=== PATIENT | female | born 1950 | race Caucasian/White ===

== ENCOUNTER 2017-05-27 12:51 | Emergency (ER) | payer OTHER ==
[2017-05-27 13:01] VITALS: BP 143/79
--- NOTE | 2017-05-27 13:07 | EDM.PDOC ---
ED HPI GENERAL MEDICAL PROBLEM - General Chief Complaint: Respiratory Problem Stated Complaint: SOB Time Seen by Provider: 05/27/17 13:07 Source of Information: Reports: Patient History Limitations: Reports: No Limitations - History of Present Illness INITIAL COMMENTS - FREE TEXT/NARRATIVE: 66-year-old female presents for evaluation and treatment of shortness of breath. Patient reports for the last weeks to maybe a few months she feels like she cannot take a full breath in. She states that it is worse at night. She reports that today she felt lightheaded and experienced the worst shortness of breath thus far therefore she decided to present to the ER. She denies any syncope, chest pain, abdominal pain, fevers, nausea, vomiting, throat swelling, edema or lymphadenopathy. She states that she has gained some weight recently but reports that her diet has not been very healthy and this is likely the reason. When asked if she's been having a pain in her legs she states that she has spinal stenosis and it is difficult for her to tell if this is from the spinal stenosis she's been experiencing any leg pain. Patient does acknowledge that this could be from anxiety. Reports that she has a lot going on and they' re currently moving into a new home. Patient is healthy with no known medical conditions. She takes some vitamins. Primary care provider is Tracy Aguirre. Reports that she used to smoke up to 2 packs a day x 15 years but she quit in the 1980s. Back Pain Score (Numeric/FACES): 4 - Related Data Allergies Allergy/AdvReac Type Severity Reaction Status Date / Time No Known Allergies Allergy Verified 05/27/17 13:01 ED ROS GENERAL - Review of Systems Review Of Systems: See Below Constitutional: Denies: Fever, Chills, Malaise Respiratory: Reports: Shortness of Breath (reports she feels she cannot take a full breath in). Denies: Cough Cardiovascular: Denies: Chest Pain, Syncope GI/Abdominal: Denies: Abdominal Pain, Nausea, Vomiting Musculoskeletal: Reports: Leg Pain (questionsif this is from spinal stenosis) ED EXAM, GENERAL - Physical Exam Exam: See Below Exam Limited By: No Limitations General Appearance: Alert, WD/WN, No Apparent Distress Ears: Normal External Exam, Normal Canal, Hearing Grossly Normal, Normal TMs Nose: Normal Inspection Throat/Mouth: Normal Inspection, Normal Lips, Normal Voice, No Airway Compromise Neck: Normal Inspection Respiratory/Chest: No Respiratory Distress, Lungs Clear, Normal Breath Sounds, Chest Non-Tender Cardiovascular: Normal Peripheral Pulses, Regular Rate, Rhythm, No Murmur Peripheral Pulses: 2+: Radial (L), Radial (R), Posterior Tibial (L), Posterior Tibial (R) GI/Abdominal: Soft, Non-Tender Neurological: Alert, Normal Cognition Psychiatric: Normal Affect, Normal Mood Skin Exam: Warm, Dry, Ecchymosis EKG INTERPRETATION EKG Date: 05/27/17 Time: 13:08 Rhythm: NSR Rate (Beats/Min): 54 [place]: Normal P-Wave: Present QRS: Normal ST-T: Normal QT: Normal EKG Interpretation Comments: NSR at 54 bpm. No acute changes. Reviewed by myself and Dr. Antonio. Course - Vital Signs Last Recorded V/S: Last Vital Signs Temp 36.7 C 05/27/17 12:58 Pulse 64 05/27/17 12:58 Resp 18 05/27/17 12:58 BP 143/79 H 05/27/17 12:58 Pulse Ox 100 05/27/17 13:11 - Orders/Labs/Meds Orders: Active Orders 24 hr Category Date Time Status Cardiac Monitoring [RC] . DIRECTED Care 05/27/17 13:16 Active EKG 12 Lead [EKG Documentation Completion] [RC] STAT Care 05/27/17 13:04 Active Peripheral IV Care [RC] . DIRECTED Care 05/27/17 13:18 Active Chest 2V [CR] Stat Exams 05/27/17 13:16 Taken Peripheral IV Insertion Adult [OM.PC] Routine Oth 05/27/17 13:18 Ordered Labs: Laboratory Tests 05/27/17 05/27/17 05/27/17 Range/Units 13:40 13:40 14:40 WBC 6.83 (3.98-10.04) K/mm3 RBC 4.85 (3.98-5.22) M/mm3 Hgb 14.5 (11.2-15.7) gm/L Hct 43.6 (34.1-44.9) % MCV 89.9 (79.4-94.8) fl MCH 29.9 (25.6-32.2) pg MCHC 33.3 (32.2-35.5) g/dl RDW Std Deviation 43.5 (36.4-46.3) fL Plt Count 215 (182-369) K/mm3 MPV 10.7 (9.4-12.3) fl Neut % (Auto) 49.1 (34.0-71.1) % Lymph % (Auto) 39.2 (19.3-51.7) % [place] % (Auto) 8.2 (4.7-12.5) % Eos % (Auto) 2.8 (0.7-5.8) Baso % (Auto) 0.4 (0.1-1.2) % Neut # (Auto) 3.35 (1.56-6.13) K/mm3 Lymph # (Auto) 2.68 (1.18-3.74) K/mm3 [place] # (Auto) 0.56 H (0.24-0.36) K/mm3 Eos # (Auto) 0.19 (0.04-0.36) K/mm3 Baso # (Auto) 0.03 (0.01-0.08) K/mm3 D-Dimer, Quantitative < 0.19 L (0.19-0.59) mg/L Sodium 143 (136-145) mEq/L Potassium 4.2 (3.5-5.1) mEq/L Chloride 105 (98-107) mEq/L Carbon Dioxide 30 (21-32) mEq/L Anion Gap 12.2 (5-15) BUN 13 (7-18) mg/dL Creatinine 0.9 (0.55-1.02) mg/dL Est Cr Clr Drug Dosing 57.43 mL/min Estimated GFR (MDRD) > 60 (>60) mL/min BUN/Creatinine Ratio 14.4 (14-18) Glucose 86 (80-115) mg/dL Calcium 9.9 (8.5-10.1) mg/dL Total Bilirubin 0.8 (0.2-1.0) mg/dL AST 13 L (15-37) U/L ALT 22 (14-59) U/L Alkaline Phosphatase 64 (46-116) U/L CK-MB (CK-2) 1.4 (0-3.6) ng/ml Troponin I < 0.017 (0.00-0.056) ng/mL Total Protein 7.6 (6.4-8.2) g/dl Albumin 4.4 (3.4-5.0) g/dl Globulin 3.2 gm/dL Albumin/Globulin Ratio 1.4 (1-2) Meds: Medications Discontinued Medications Generic Name Dose Route Start Last Admin Trade Name Sunil PRN Reason Stop Dose Admin Sodium Chloride 10 ml 05/27/17 13:18 05/27/17 13:41 Saline Flush FLUSH 10 ml ASDIRECTED PRN Administration Keep Vein Open - Radiology Interpretation Free Text/Narrative:: 2 view chest xray shows no acute intrathoracic process. - Re-Assessments/Exams Free Text/Narrative Re-Assessment/Exam: 05/27/17 15:33 Labs returned and are generally unremarkable. I reviewed this with the patient along with her EKG and chest x-ray results. I feel this is most likely anxiety. She is reassured. I will discharge her home at this time. Instructions to follow-up with her primary care provider if her symptoms persist. She does not want to try any medications for anxiety. Discharge instructions as documented. Departure - Departure Time of Disposition: 15:34 Disposition: Home, Self-Care 01 Condition: Good Clinical Impression: Anxiety - Discharge Information Instructions: Panic Attacks, [id number] Referrals: Yolette Augirre [facility] [Primary Care Provider] - Forms: ED Department Discharge Additional Instructions: Follow-up with your primary care provider if your symptoms persist. Rest. Please return to the ER if your symptoms change or worsen. - My Orders Last 24 Hours: My Active Orders 05/27/17 13:04 EKG 12 Lead [EKG Documentation Completion] [RC] STAT 05/27/17 13:16 Cardiac Monitoring [RC] . DIRECTED Chest 2V [CR] Stat 05/27/17 13:18 Peripheral IV Care [RC] . DIRECTED Peripheral IV Insertion Adult [OM.PC] Routine - Assessment/Plan Last 24 Hours: My Active Orders 05/27/17 13:04 EKG 12 Lead [EKG Documentation Completion] [RC] STAT 05/27/17 13:16 Cardiac Monitoring [RC] . DIRECTED Chest 2V [CR] Stat 05/27/17 13:18 Peripheral IV Care [RC] . DIRECTED Peripheral IV Insertion Adult [OM.PC] Routine
[2017-05-27] MEDS ORDERED: Sodium Chloride 0.9% 10 ML Syringe FLUSH PRN (13:18)
--- NOTE | 2017-05-28 18:40 | CR ---
Chest: Two views of the chest were obtained. Comparison: No previous chest x-ray. Heart size and mediastinum are within normal limits. Lungs are clear. Minimal scoliosis is noted. Impression: 1. Incidental findings. Nothing acute is identified on two-view chest x-ray. Diagnostic code #2
== END 2017-05-27 15:55 | disposition home or self-care (01) ==
LOC: JD.ED 12:51
DX: F41.9 Anxiety disorder, unspecified (principal)
CPT/HCPCS: 36415; 71020; 80053; 82553; 84484; 85025; 85379; 93005; 99285; J7050; 99284